=== PATIENT | male | born 1985 | race Two or more races ===

== ENCOUNTER 2020-09-01 10:39 | Emergency (ER) | payer BC, MEDICAID, OTHER ==
[~2020-09-01] VITALS: Ht 170.2 cm; Wt 111.3 kg
[2020-09-01 10:55] VITALS: BP 134/83
--- NOTE | 2020-09-01 13:01 | NUR ---
PT TO ROOM FROM LOBBY
[2020-09-01] MEDS ORDERED: HYDROcodone/APAP 5/325 TABLET PO ONE (13:30)
[2020-09-01] MEDS ORDERED: HYDROcodone/APAP 5/325 TABLET ONE (13:36)
== END 2020-09-01 13:48 | disposition home or self-care (01) ==
LOC: ED 13:42
DX: S93.402A Sprain of unspecified ligament of left ankle, initial encounter (principal); X58.XXXA Exposure to other specified factors, initial encounter; Y93.89 Activity, other specified; Y92.89 Other specified places as the place of occurrence of the external cause; Y99.8 Other external cause status
CPT/HCPCS: 99283